=== PATIENT | male | born 1960 | race Caucasian/White ===

== ENCOUNTER → 2016-12-06 | Outpatient (CLI) | payer OTHER, BC ==
[~2016-12-06] MED LIST: CITALOPRAM PO; CONRAY-43 43% 50ML VIAL (Q9960) As Ordered ONE; DOCU10ELUD PO; LYRI75CA PO; MAGNESIUM PO; MULTIVITAMIN MENS PO; NEUROTIN PO; OMEPPOW18 PO; PERCOCET PO; POTASSIUM GLUCONATE PO; TYLE325T5 PO
--- NOTE | 2016-12-06 10:02 | REP ---
MR ARTHROGRAPHY RIGHT WRIST: HISTORY: Right wrist sprain. Question tear. Comparison is made with today's fluoroscopically obtained arthrographic images. No other right wrist imaging. TECHNIQUE: The injection procedure is performed and dictated separately. Pre- and post intra-articular gadolinium enhanced saline injected imaging is acquired. Axial coronal and sagittal imaging planes utilized. T1- and T2-weighted scans obtained in the usual fashion with and without fat saturation. MR ARTHROGRAPHIC FINDINGS: Pre- injection MR imaging shows a small subcortical cyst in the ulnar side of the lunate bone. Cortical and medullary bone signal intensity are otherwise felt to be normal. Triangular fibrocartilage is unremarkable on pre injection MR imaging. No joint effusion is seen. Post injection MR imaging shows good filling and enhancement of the radiocarpal articulation. There is no enhancement in the distal radial ulnar joint. The injected contrast is limited to the radiocarpal articulation. No distal carpal row enhancement is seen. The triangular fibrocartilage is felt to be intact. The carpal tunnel and its contents are unremarkable. No tendon disruption is seen. IMPRESSION: Tiny subcortical cyst noted in the ulnar surface of the lunate bone. No evidence of triangular fibrocartilage tear. Otherwise negative MR arthrography right wrist. Signed by David Nixon MD 12/06/2016 01:35 P
--- NOTE | 2016-12-06 16:33 | REP ---
RIGHT WRIST ARTHROGRAM: The procedure was performed under the direct supervision of Dr. Nixon. The benefits and risks including but not limited to pain, infection, bleeding, and anaphylaxis were explained to the patient and informed consent was obtained. The right radioscaphoid joint space was localized using fluoroscopic guidance. The skin was prepped and draped in a sterile fashion. 1% Lidocaine was used as a local anesthetic. Using fluoroscopic guidance a #25-gauge needle was inserted and advanced into the joint. 3 mL of a solution containing 5 mL of Conray-43 and 5 mL of a solution containing 20 mL of sterile saline and 0.15 mL of ProHance was injected into the joint space. Images obtained during injection show filling of the radiocarpal row. The scapholunate and lunatotriquetral ligaments appear intact. The triangular fibrocartilage complex appears intact. The needle was removed and the patient was taken to MRI for postprocedural imaging. The patient tolerated the procedure well and there were no immediate complications. 22 seconds of fluoroscopic time was utilized for this procedure. Reviewed by DYLON Remy 12/07/2016 01:39 PEdited and Signed by David Nixon MD 12/07/2016 02:35 P
== END | disposition home or self-care (01) ==
LOC: M RADPRO 06:53
PROVIDERS: ATTEND Orthopaedic Surgery
DX: M85.441 Solitary bone cyst, right hand (principal)
CPT/HCPCS: 25246; 73223; 77002; A9576; Q9960

== ENCOUNTER → 2017-12-21 | Outpatient (REF) | payer OTHER | LOC: M LAB REF 09:34 | DX: D48.5 Neoplasm of uncertain behavior of skin (principal) ==

== ENCOUNTER 2020-07-03 09:05 | Day surgery (SDC) | payer BC, OTHER ==
[~2020-07-03 09:05] MED LIST changes: -CONRAY-43 43% 50ML VIAL (Q9960) As Ordered ONE; -DOCU10ELUD PO; +DOCU5LIQ PO; +OXYC1TAB23 PO; -PERCOCET PO
[2020-07-03] MEDS ORDERED: propofoL 200 MG/20 ML VIAL ONE (09:27)
[2020-07-03] MEDS ORDERED: LIDOCAINE 2% 100MG/5ML SDV (FOR ANES.) ONE (09:27)
== END 2020-07-03 10:05 | disposition home or self-care (01) ==
LOC: M SDC 09:05
PROVIDERS: ATTEND Surgery
DX: Z12.11 Encounter for screening for malignant neoplasm of colon (principal); Z86.010 Personal history of colon polyps; Z79.899 Other long term (current) drug therapy; Z88.0 Allergy status to penicillin; Z91.040 Latex allergy status

== ENCOUNTER → 2020-10-27 | Outpatient (CLI) | payer SELFPAY | LOC: M LABSMTC 13:55 | PROVIDERS: ATTEND Pediatrics | DX: Z20.828 Contact with and (suspected) exposure to other viral communicable diseases (principal) ==

== ENCOUNTER → 2022-06-02 | Outpatient (CLI) | payer BC, OTHER | LOC: M RAD 07:01 | PROVIDERS: ATTEND Internal Medicine | DX: R91.8 Other nonspecific abnormal finding of lung field (principal); F17.211 Nicotine dependence, cigarettes, in remission ==

== ENCOUNTER → 2022-06-14 | Outpatient (REF) | payer OTHER | LOC: M LAB REF 15:47 | PROVIDERS: ATTEND Physician Assistant | DX: N39.0 Urinary tract infection, site not specified (principal) ==

== ENCOUNTER → 2023-07-04 | Outpatient (REF) | payer OTHER | LOC: M LAB REF 16:09 | PROVIDERS: ATTEND Nurse Practitioner Adult Health | DX: J02.9 Acute pharyngitis, unspecified (principal) ==

== ENCOUNTER → 2023-08-03 | Outpatient (REF) | payer OTHER | LOC: M LAB REF 11:45 | PROVIDERS: ATTEND Internal Medicine | DX: R53.83 Other fatigue (principal) ==

== ENCOUNTER → 2023-09-16 | Outpatient (REF) | payer OTHER | LOC: M LAB REF 12:14 | PROVIDERS: ATTEND Internal Medicine | DX: R53.83 Other fatigue (principal) ==

== ENCOUNTER → 2023-11-29 | Outpatient (REF) | payer OTHER | LOC: M LAB REF 09:20 | PROVIDERS: ATTEND Internal Medicine | DX: E29.1 Testicular hypofunction (principal) ==

== ENCOUNTER → 2024-08-03 | Outpatient (REF) | payer OTHER | LOC: M LAB REF 17:10 | PROVIDERS: ATTEND Internal Medicine | DX: E29.1 Testicular hypofunction (principal) ==

== ENCOUNTER → 2024-09-03 | Outpatient (CLI) | payer BC | LOC: M RAD 08:00 | PROVIDERS: ATTEND Internal Medicine | DX: I71.02 Dissection of abdominal aorta (principal) ==